=== PATIENT | female | born 1950 | race Two or more races ===

== ENCOUNTER 2021-07-14 18:15 | Inpatient (IN) | payer MEDICARE, OTHER ==
[~2021-07-14] VITALS: Ht 152.4 cm; Wt 51.3 kg
[2021-07-14] MEDS ORDERED: ASPirin 325 MG TAB PO ONE (21:00)
[2021-07-14 21:44] LABS: Basophils # (auto) 0.1 10 ^3/uL (0-0.2); Basophils % (auto) 0.9 % (0.0-2.0); Eosinophils # (auto) 0.1 10 ^3/uL (0-0.8); Eosinophils % (auto) 2.1 % (0.0-7.0); Hematocrit 39.9 % (36.0-46.0); Hemoglobin 13.5 g/dL (12.2-16.2); Lymphocytes # (auto) 3.1 10 ^3/uL (0.4-5.4); Mean Corpuscular Hemoglobin 29.4 pg (28.0-32.0); Mean Corpuscular Hgb Conc. 33.9 g/dL (32.0-36.0); Mean Corpuscular Volume 86.8 fL (80.0-100.0); Monocytes # (auto) 0.5 10 ^3/uL (0-1.3); Monocytes % (auto) 8.2 % (0.0-12.0); Neutrophils # (auto) 2.7 10 ^3/uL (1.6-8.6); Neutrophils % (auto) 41.8 % (37.0-80.0); Nucleated Red Blood Cells % 0.1 %; Red Blood Cells 4.59 10^6/uL (4.0-5.20); Red Cell Distribution Width 14.4 % (11.8-14.3); White Blood Cell 6.5 10^3/uL (4.4-10.8)
[2021-07-14] MEDS ORDERED: TEMAZEPAM 15 MG CAP PO PRN (21:45)
[2021-07-14] MEDS ORDERED: DEXTROSE (50%) 50ML SYRG IV PRN (21:45)
[2021-07-14] MEDS ORDERED: ONDANSETRON HCL 4 MG/2 ML VIAL IV PRN (21:45)
[2021-07-14 21:59] LABS: INR 0.97 (0.9-1.15)
[2021-07-14 22:00] LABS: Albumin 3.9 g/dL (3.4-5.0); Calcium 9.7 mg/dL (8.5-10.1); Potassium 3.9 mmol/L (3.5-5.1)
[2021-07-14 22:03] LABS: BUN/Creatinine Ratio 14.3
[2021-07-14 22:14] LABS: Bilirubin, Total 0.2 mg/dL (0.2-1.0); Total Protein 8.2 g/dL (6.4-8.2)
[2021-07-14] MEDS: ACCU-CHEK COMFORT CURVE STRIP VI SCH (23:41)
[2021-07-15] MEDS: GABAPENTIN 300 MG CAP PO SCH ×3 (00:01→21:14)
[2021-07-15] MEDS: ATORVASTATIN 20 MG TAB PO SCH ×2 (00:02→21:14)
[2021-07-15] MEDS: CARVEDILOL 3.125 MG TAB PO SCH ×3 (00:02→21:17)
[2021-07-15] MEDS: InsuLIN REG 1unit/0.01ml Soln (100units/ml) SC SCH ×5 (00:18→21:24)
[2021-07-15] MEDS ORDERED: PAR20T GT (02:24)
[2021-07-15] MEDS ORDERED: OMEP20TA PO (02:25)
[2021-07-15] MEDS ORDERED: MELO1TAB56 PO (02:27)
[2021-07-15] MEDS ORDERED: CAR3125T PO (02:27)
[2021-07-15] MEDS ORDERED: METF-371 PO (02:28)
[2021-07-15] MEDS ORDERED: ASPI-543 PO (02:29)
[2021-07-15] MEDS ORDERED: SIMV-8 PO (02:31)
[2021-07-15] MEDS ORDERED: AMLO-489 PO (02:32)
[2021-07-15 05:00] VITALS: BP 114/67
[2021-07-15] MEDS: ACCU-CHEK COMFORT CURVE STRIP VI SCH ×4 (06:15→21:24)
[2021-07-15 09:05] VITALS: BP 115/73
[2021-07-15] MEDS ORDERED: ASPirin 81 mg TAB PO SCH (10:00)
[2021-07-15] MEDS: ZINC SULFATE 220mg CAP or TAB PO SCH (10:10)
[2021-07-15] MEDS: amLODIPine BESYLATE 5 MG TAB PO SCH (10:11)
[2021-07-15] MEDS: ENOXAPARIN SOD 40 MG/0.4 ML SYRINGE SC SCH (10:12)
[2021-07-15] MEDS: ASCORBIC ACID 500 MG TAB PO SCH (10:12)
[2021-07-15] MEDS: PANTOPRAZOLE 40 MG TAB PO SCH (10:12)
[2021-07-15] MEDS: ASPIRIN-DIPYRIDAMOLE (25/200MG) CAPSULE PO SCH ×2 (10:40→21:14)
[2021-07-15 12:20] LABS: Cholesterol 204 mg/dL (< 200); HDL Cholesterol 75 mg/dL (40-59); LDL Cholesterol 103 mg/dL (< 100); Triglycerides 160 mg/dL (< 150)
[2021-07-15 12:44] VITALS: BP 136/79
[2021-07-15 16:44] VITALS: BP 130/74
[2021-07-15] MEDS: ACETAMINOPHEN 325 MG TAB PO PRN (18:28)
[2021-07-15 22:14] VITALS: BP 116/76
[2021-07-16 05:00] VITALS: BP 107/67
[2021-07-16] MEDS: InsuLIN REG 1unit/0.01ml Soln (100units/ml) SC SCH ×4 (06:32→22:12)
[2021-07-16] MEDS: ACCU-CHEK COMFORT CURVE STRIP VI SCH ×4 (06:33→22:10)
[2021-07-16 09:00] VITALS: BP 135/78
[2021-07-16] MEDS: ZINC SULFATE 220mg CAP or TAB PO SCH (10:12)
[2021-07-16] MEDS: ASPIRIN-DIPYRIDAMOLE (25/200MG) CAPSULE PO SCH ×2 (10:13→21:05)
[2021-07-16] MEDS: CARVEDILOL 3.125 MG TAB PO SCH ×2 (10:13→21:06)
[2021-07-16] MEDS: GABAPENTIN 300 MG CAP PO SCH ×2 (10:14→21:06)
[2021-07-16] MEDS: amLODIPine BESYLATE 5 MG TAB PO SCH (10:14)
[2021-07-16] MEDS: PANTOPRAZOLE 40 MG TAB PO SCH (10:14)
[2021-07-16] MEDS: ASCORBIC ACID 500 MG TAB PO SCH (10:15)
[2021-07-16] MEDS: ENOXAPARIN SOD 40 MG/0.4 ML SYRINGE SC SCH (10:15)
[2021-07-16] MEDS: ACETAMINOPHEN 325 MG TAB PO PRN ×2 (11:30→22:09)
[2021-07-16 13:00] VITALS: BP 130/77
[2021-07-16 17:00] VITALS: BP 130/80
[2021-07-16] MEDS: ATORVASTATIN 20 MG TAB PO SCH (21:06)
[2021-07-16 22:00] VITALS: BP 130/72
[2021-07-17 05:22] VITALS: BP 105/62
[2021-07-17] MEDS: ACCU-CHEK COMFORT CURVE STRIP VI SCH ×4 (07:00→21:50)
[2021-07-17] MEDS: InsuLIN REG 1unit/0.01ml Soln (100units/ml) SC SCH ×4 (07:01→22:03)
[2021-07-17 09:00] VITALS: BP 117/76
[2021-07-17] MEDS: CARVEDILOL 3.125 MG TAB PO SCH ×2 (09:30→21:49)
[2021-07-17] MEDS: amLODIPine BESYLATE 5 MG TAB PO SCH (09:35)
[2021-07-17] MEDS: ACETAMINOPHEN 325 MG TAB PO PRN (10:45)
[2021-07-17] MEDS: PANTOPRAZOLE 40 MG TAB PO SCH (11:13)
[2021-07-17] MEDS: GABAPENTIN 300 MG CAP PO SCH ×2 (11:13→21:49)
[2021-07-17] MEDS: ENOXAPARIN SOD 40 MG/0.4 ML SYRINGE SC SCH (11:13)
[2021-07-17] MEDS: ASPIRIN-DIPYRIDAMOLE (25/200MG) CAPSULE PO SCH ×2 (12:08→21:48)
[2021-07-17 13:00] VITALS: BP 123/80
[2021-07-17] MEDS: KETOROLAC TROMETH 30 MG/ML 1ML VIAL IV PRN (16:36)
[2021-07-17 17:00] VITALS: BP 136/77
[2021-07-17] MEDS: ATORVASTATIN 20 MG TAB PO SCH (21:49)
[2021-07-17 22:00] VITALS: BP 117/69
[2021-07-18 05:00] VITALS: BP 106/66
[2021-07-18] MEDS: ACCU-CHEK COMFORT CURVE STRIP VI SCH ×4 (06:39→22:04)
[2021-07-18] MEDS: InsuLIN REG 1unit/0.01ml Soln (100units/ml) SC SCH ×4 (06:40→22:05)
[2021-07-18 08:00] VITALS: BP 117/82
[2021-07-18] MEDS: PANTOPRAZOLE 40 MG TAB PO SCH (08:37)
[2021-07-18] MEDS: GABAPENTIN 300 MG CAP PO SCH ×2 (08:38→22:04)
[2021-07-18] MEDS: ENOXAPARIN SOD 40 MG/0.4 ML SYRINGE SC SCH (08:38)
[2021-07-18] MEDS: KETOROLAC TROMETH 30 MG/ML 1ML VIAL IV PRN (08:40)
[2021-07-18] MEDS: CARVEDILOL 3.125 MG TAB PO SCH ×2 (08:41→22:04)
[2021-07-18] MEDS: amLODIPine BESYLATE 5 MG TAB PO SCH (08:41)
[2021-07-18] MEDS: ASPIRIN-DIPYRIDAMOLE (25/200MG) CAPSULE PO SCH ×2 (08:42→22:03)
[2021-07-18 12:00] VITALS: BP 107/65
[2021-07-18 16:00] VITALS: BP 122/73
[2021-07-18 22:00] VITALS: BP 117/75
[2021-07-18] MEDS: ATORVASTATIN 20 MG TAB PO SCH (22:04)
[2021-07-19 05:00] VITALS: BP 126/74
[2021-07-19] MEDS: ACCU-CHEK COMFORT CURVE STRIP VI SCH ×4 (05:47→22:02)
[2021-07-19] MEDS: InsuLIN REG 1unit/0.01ml Soln (100units/ml) SC SCH ×4 (05:47→22:00)
[2021-07-19 08:00] VITALS: BP 121/73
[2021-07-19] MEDS: ASPIRIN-DIPYRIDAMOLE (25/200MG) CAPSULE PO SCH (09:49)
[2021-07-19] MEDS: CARVEDILOL 3.125 MG TAB PO SCH ×2 (09:49→22:01)
[2021-07-19] MEDS: GABAPENTIN 300 MG CAP PO SCH ×2 (09:49→22:02)
[2021-07-19] MEDS: amLODIPine BESYLATE 5 MG TAB PO SCH (09:50)
[2021-07-19] MEDS: PANTOPRAZOLE 40 MG TAB PO SCH (09:50)
[2021-07-19] MEDS: ENOXAPARIN SOD 40 MG/0.4 ML SYRINGE SC SCH (09:50)
[2021-07-19 12:00] VITALS: BP 117/75
[2021-07-19] MEDS: KETOROLAC TROMETH 30 MG/ML 1ML VIAL IV PRN (12:09)
[2021-07-19] MEDS ORDERED: MIDAZOLAM HCL 2MG/2ML 2ml VIAL (1mg/ml) IV ONE (13:15)
[2021-07-19 16:00] VITALS: BP 107/63
[2021-07-19] MEDS: ATORVASTATIN 20 MG TAB PO SCH (22:00)
[2021-07-19 22:28] VITALS: BP 134/79
[2021-07-20 05:47] VITALS: BP 124/70
[2021-07-20] MEDS: ACCU-CHEK COMFORT CURVE STRIP VI SCH ×4 (05:47→21:52)
[2021-07-20] MEDS: InsuLIN REG 1unit/0.01ml Soln (100units/ml) SC SCH ×4 (05:47→21:51)
[2021-07-20 09:00] VITALS: BP 120/68
[2021-07-20] MEDS: PANTOPRAZOLE 40 MG TAB PO SCH (09:38)
[2021-07-20] MEDS: GABAPENTIN 300 MG CAP PO SCH ×2 (09:38→21:49)
[2021-07-20] MEDS: CARVEDILOL 3.125 MG TAB PO SCH ×2 (09:39→21:53)
[2021-07-20] MEDS: CLOPIDOGREL BISULFATE 75 MG TAB PO SCH (09:39)
[2021-07-20] MEDS: amLODIPine BESYLATE 5 MG TAB PO SCH (09:40)
[2021-07-20] MEDS: ENOXAPARIN SOD 40 MG/0.4 ML SYRINGE SC SCH (09:40)
[2021-07-20 12:46] VITALS: BP 130/79
[2021-07-20 16:50] VITALS: BP 111/67
[2021-07-20 20:00] VITALS: BP 116/69
[2021-07-20] MEDS: ATORVASTATIN 20 MG TAB PO SCH (21:48)
[2021-07-21 05:00] VITALS: BP 123/78
[2021-07-21] MEDS: ACCU-CHEK COMFORT CURVE STRIP VI SCH ×2 (06:24→11:24)
[2021-07-21] MEDS: InsuLIN REG 1unit/0.01ml Soln (100units/ml) SC SCH ×2 (06:24→11:26)
[2021-07-21 09:00] VITALS: BP 113/67
[2021-07-21] MEDS: GABAPENTIN 300 MG CAP PO SCH (09:32)
[2021-07-21] MEDS: CARVEDILOL 3.125 MG TAB PO SCH (09:32)
[2021-07-21] MEDS: PANTOPRAZOLE 40 MG TAB PO SCH (09:33)
[2021-07-21] MEDS: ENOXAPARIN SOD 40 MG/0.4 ML SYRINGE SC SCH (09:33)
[2021-07-21] MEDS: amLODIPine BESYLATE 5 MG TAB PO SCH (09:33)
[2021-07-21] MEDS: CLOPIDOGREL BISULFATE 75 MG TAB PO SCH (09:33)
[2021-07-21] MEDS ORDERED: METF-371 PO (10:14)
[2021-07-21] MEDS ORDERED: CLOP75TA28 PO (10:14)
[2021-07-21] MEDS ORDERED: ATOR20TA50 PO (10:14)
[2021-07-21] MEDS ORDERED: CAR3125T PO (10:14)
[2021-07-21] MEDS ORDERED: AMLO-489 PO (10:14)
[2021-07-21 13:00] VITALS: BP 114/74
== END 2021-07-21 12:29 | disposition home or self-care (01) | DRG 66 ==
LOC: ER 18:18 → OVERFLOW 21:33 → WEST WING 07-15 00:28
PROVIDERS: ADMIT Nurse Practitioner; ATTEND Internal Medicine Nephrology
PROC: B24BZZ4 Ultrasonography of Heart with Aorta, Transesophageal (ICD-10-PCS; principal; 2021-07-19)
DX: I63.9 Cerebral infarction, unspecified (principal); E11.9 Type 2 diabetes mellitus without complications; I10 Essential (primary) hypertension; G47.00 Insomnia, unspecified; E78.5 Hyperlipidemia, unspecified; K21.9 Gastro-esophageal reflux disease without esophagitis; G47.10 Hypersomnia, unspecified; R29.810 Facial weakness; Z20.822 Contact with and (suspected) exposure to COVID-19; Z79.82 Long term (current) use of aspirin; Z79.899 Other long term (current) drug therapy; Z82.0 Family history of epilepsy and other diseases of the nervous system; Z82.49 Family history of ischemic heart disease and other diseases of the circulatory system; Z83.3 Family history of diabetes mellitus; Z86.73 Personal history of transient ischemic attack (TIA), and cerebral infarction without residual deficits
CPT/HCPCS: 36415; 70450; 70551; 71045; 80053; 80061; 82962; 83036; 83880; 84484; 85025; 85610; 87426; 93005; 93306; 93312; 93886; 99152; G0378; J1815; J1885; J2250; J2405

== ENCOUNTER 2023-03-28 17:38 | Emergency (ER) | payer MEDICARE ==
[~2023-03-28] VITALS: Ht 154.9 cm; Wt 51.8 kg
[~2023-03-28 17:38] MED LIST: AMLO1TAB22 PO; ATOR20TA50 PO; CAR3125T PO; CLOP75TA28 PO; METF-371 PO; OMEP20TA PO; PAR20T GT
[2023-03-28] MEDS ORDERED: SODIUM BICARBONATE 8.4 % INJ 50ML VIAL IV ONE (19:08)
[2023-03-29 00:17] VITALS: BP 139/85; PULSE 85; RESP 20; TEMP 97.6; O2SAT 97
== END 2023-03-29 02:01 | disposition home or self-care (01) ==
LOC: ER 17:38
DX: S63.591A Other specified sprain of right wrist, initial encounter (principal); S00.83XA Contusion of other part of head, initial encounter; S70.11XA Contusion of right thigh, initial encounter; S80.211A Abrasion, right knee, initial encounter; I10 Essential (primary) hypertension; E11.9 Type 2 diabetes mellitus without complications; K21.9 Gastro-esophageal reflux disease without esophagitis; E78.5 Hyperlipidemia, unspecified; I25.10 Atherosclerotic heart disease of native coronary artery without angina pectoris; Z98.890 Other specified postprocedural states; Z79.84 Long term (current) use of oral hypoglycemic drugs; Z79.899 Other long term (current) drug therapy; W18.39XA Other fall on same level, initial encounter; Y93.89 Activity, other specified; Y92.89 Other specified places as the place of occurrence of the external cause; Y99.8 Other external cause status
CPT/HCPCS: 29125; 70450; 70486; 72192; 73110; 73562; 93005

== ENCOUNTER 2023-06-06 14:23 | Emergency (ER) | payer MEDICARE ==
[~2023-06-06] VITALS: Ht 152.4 cm; Wt 50.3 kg
[2023-06-06 15:13] VITALS: BP 131/71; PULSE 104; RESP 16; TEMP 97.8; O2SAT 96
[2023-06-06 15:40] LABS: Urine Bacteria FEW /hpf (None Seen); Urine Blood TRACE /uL (Negative); Urine Clarity Clear (Clear); Urine Color Yellow (Yellow); Urine Protein, UAD 2+ (Negative); Urine Specific Gravity 1.023 (1.001-1.035); Urine Urobilinogen Normal (Negative); Urine WBC 6 /hpf (0 - 5); Urine pH 6.5 (5.0-8.0)
[2023-06-06 16:04] LABS: Basophils # (auto) 0 10 ^3/uL (0-0.2); Basophils % (auto) 0.2 % (0.0-2.0); Eosinophils # (auto) 0 10 ^3/uL (0-0.8); Eosinophils % (auto) 0.3 % (0.0-7.0); Hematocrit 35.9 % (36.0-46.0); Hemoglobin 12.5 g/dL (12.2-16.2); Lymphocytes # (auto) 1.1 10 ^3/uL (0.4-5.4); Lymphocytes % (auto) 11.3 % (10.0-50.0); Mean Corpuscular Hemoglobin 30.2 pg (28.0-32.0); Mean Corpuscular Hgb Conc. 34.8 g/dL (32.0-36.0); Mean Corpuscular Volume 86.9 fL (80.0-100.0); Monocytes # (auto) 0.9 10 ^3/uL (0-1.3); Monocytes % (auto) 9.4 % (0.0-12.0); Neutrophils # (auto) 7.6 10 ^3/uL (1.6-8.6); Neutrophils % (auto) 78.8 % (37.0-80.0); Nucleated Red Blood Cells % 0.1 %; Red Blood Cells 4.13 10^6/uL (4.0-5.20); Red Cell Distribution Width 17.2 % (11.8-14.3); White Blood Cell 9.7 10^3/uL (4.4-10.8)
[2023-06-06 16:10] LABS: Alanine Aminotransferase 15 U/L (7-40); Albumin 4.6 g/dL (3.2-4.8); Alkaline Phosphatase 108 U/L (46-116); Anion Gap 7 (5-15); Aspartate Aminotransferase 18 U/L (13-40); BUN/Creatinine Ratio 7.6 (10.0-20.0); Bilirubin, Total 0.5 mg/dL (0.2-1.0); Blood Urea Nitrogen 5 mg/dL (9-23); Calcium 9.3 mg/dL (8.5-10.1); Carbon Dioxide 24 mmol/L (20-30); Chloride 93 mmol/L (98-107); Glucose 205 mg/dL (74-106); Lactic Acid w/Reflex 2.7 mmol/L (0.4-2.0); Potassium 4.6 mmol/L (3.5-5.1); Sodium 124 mmol/L (136-145); Total Protein 7.7 g/dL (5.7-8.2)
[2023-06-06] MEDS ORDERED: SODIUM CHLORIDE 0.9% 1,000 ML IV ONE (16:15)
[2023-06-06] MEDS ORDERED: ACETAMINOPHEN 325 MG TAB PO ONE (16:15)
[2023-06-06] MEDS ORDERED: cefTRIAXone 1GM/50ML D5W 50 ML IV ONE (16:30)
[2023-06-06] MEDS ORDERED: ACET-1080 PO (17:34)
[2023-06-06] MEDS ORDERED: CIPR-173 PO (17:34)
== END 2023-06-06 17:58 | disposition home or self-care (01) ==
LOC: ER 14:23
DX: R51.9 Headache, unspecified (principal); N39.0 Urinary tract infection, site not specified; E11.9 Type 2 diabetes mellitus without complications; K21.9 Gastro-esophageal reflux disease without esophagitis; E78.5 Hyperlipidemia, unspecified; I10 Essential (primary) hypertension; Z87.820 Personal history of traumatic brain injury; Z90.49 Acquired absence of other specified parts of digestive tract
CPT/HCPCS: 36415; 70450; 71046; 80053; 81001; 83605; 85025; 96365; 99285; J0696; J7030

== ENCOUNTER 2024-11-15 15:32 | Emergency (ER) | payer MEDICARE ==
[~2024-11-15] VITALS: Ht 160 cm; Wt 51.2 kg
[~2024-11-15 15:32] MED LIST changes: +ACET-1080 PO; +CIPR-173 PO
--- NOTE | 2024-11-15 16:44 | DVH ---
CLINICAL INDICATION: Twisting injury TECHNIQUE: 3 V XY R KNEE 3V XRAY Comparison: XY R KNEE 3V XRAY on DOS: 03/28/23 FINDINGS/IMPRESSION: : There is no evidence of acute fracture or dislocation. Soft tissues are unremarkable.
--- NOTE | 2024-11-15 16:59 | ED.PDOC ---
History of Present Illness HPI Comments 74F presents to the Er in a wheelchair and with no prior hx associated to the c/c of a fall injury of the right knee five days ago. The son who was pushing the pt stated that the pt was in the garden doing yard work when she fell and landed on her right knee, and ever since then the pt is unable to bear all of her weight onto the on leg. Patient is able to ambulate, but with difficulty. Pt notes that the incident happened 5 days ago and that the pt has been having a NEWSOME w/ N/. PMHx of CVA, DM, GERD, High Lipids and HTN. SHx of . Denies chills, fever, /V/D, SOB, CP or no other associated symptom's, modifiers, recent injuries or sick contacts at this time. Time Seen by MD: 15:55 Primary Care Provider: HUAN Reviewed Notes: Nurses Notes, Medications, Allergies Allergies: Coded Allergies: NO KNOWN ALLERGIES (Unverified , 07/14/21) Home Meds Active Scripts Acetaminophen (Tylenol 8 Hour Arthritis) 650 Mg Tab, 650 MG PO QID, #30 TAB Prov:CRISTIANO RAE 06/06/23 Ciprofloxacin Hcl (Cipro) 500 Mg Tab, 1 TAB PO BID, #14 TAB Prov:CRISTIANO RAE 06/06/23 Clopidogrel Bisulfate (Plavix) 75 Mg Tab, 75 MG PO DAILY for 30 Days, #30 TAB 1 Refill Prov:KENNETH MARTINEZ MD 07/21/21 Atorvastatin Calcium (ATORVASTATIN CALCIUM) 20 Mg Tab, 20 MG PO HS for 30 Days, #30 TAB 1 Refill Prov:KENNETH MARTINEZ MD 07/21/21 Amlodipine Besylate (Amlodipine Besylate) 5 Mg Tab, 2 TAB PO DAILY for 30 Days, #60 TAB 1 Refill Prov:KENNETH MARTINEZ MD 07/21/21 Metformin Hydrochloride (Metformin Hcl) 850 Mg Tab, 850 MG PO BID for 30 Days, #60 TAB 1 Refill Prov:KENNETH MARTINEZ MD 07/21/21 Carvedilol (Coreg) 3.125 Mg Tab, 3.125 MG PO BID for 30 Days, #60 TAB 1 Refill Prov:KENNETH MARTINEZ MD 07/21/21 Reported Medications Omeprazole (Gnp Omeprazole) 20 Mg Tab, 20 MG PO, TAB 07/15/21 Paroxetine (PAXIL TABLET) 20 Mg Tb, 20 MG GT, TAB 07/15/21 Information Source: Patient, Relative (Child) Mode of Arrival: Wheelchair Severity: Moderate Timing: Days Duration: Since onset, Days Prehospital treatment: None Past Medical History PAST MEDICAL HISTORY: CVA, DM, GERD, High Lipids, HTN Surgical History: ASSIST[employer] History: Denies all ASSIST[employer]ING [employer] Hx Family History Family History: Reviewed,noncontributory to illness, Unknown Social History Smoker: Non-Smoker Alcohol: Denies ETOH Use Drugs: Denies Drug Use Lives In: Home Constitutional: reports: others (right knee pain); denies: chills, diaphoresis, fatigue, fever, malaise, sweats, weakness EENTM: denies: blurred vision, double vision, ear bleeding, ear discharge, ear drainage, ear pain, ear ringing, eye pain, eye redness, hearing loss, mouth pain, mouth swelling, nasal discharge, nose bleeding, nose congestion, nose pain, photophobia, tearing, throat pain, throat swelling, voice changes, others Respiratory: denies: cough, hemoptysis, orthopnea, SOB at rest, shortness of breath, SOB with excertion, stridor, wheezing, others Cardiovascular: denies: chest pain, dizzy spells, diaphoresis, Dyspnea on exertion, edema, irregular heart beat, left arm pain, lightheadedness, palpitations, PND, syncope, others Gastrointestinal: denies: abdomen distended, abdominal pain, blood streaked bowels, constipated, diarrhea, dysphagia, difficulty swallowing, hematemesis, melena, nausea, poor appetite, poor fluid intake, rectal bleeding, rectal pain, vomiting, others Genitourinary: denies: abnormal vagina bleeding, burning, dyspareunia, dysuria, flank pain, frequency, hematuria, incontinence, pain, , vagina discharge, urgency, others Neurological: denies: dizziness, fainting, headache, left sided numbness, left sided weakness, numbness, paresthesia, pre-existing deficit, right sided numbness, right sided weakness, seizure, speech problems, tingling, tremors, we akness, others Musculoskeletal: reports: others (Right knee pain); denies: back pain, gout, joint pain, joint swelling, muscle pain, muscle stiffness, neck pain Integumetry: denies: bruises, change in color, change in hair/nails, dryness, laceration, lesions, lumps, rash, wounds, others Allergic/Immunocompromised: denies: Difficulty Healing, Frequent Infections, Hives, Itching, others Hematologic/Lymphatic: denies: anemia, blood clots, easy bleeding, easy bruising, swollen glands, others Endocrine: denies: excessive hunger, excessive sweating, excessive thirst, excessive urination, flushing, intolerance to cold, intolerance to heat, unexplained weight gain, unexplained weight loss, others Psychiatric: denies: anxiety, bipolar disorder, depression, hopeless, panic disorder, schizophrenia, sleepless, suicidal, others All Other Systems: Reviewed and Negative Physical Exam General Appearance: Moderate Distress ( [id number] distress at time of evaluation.), Normal HEENT: Normal ENT Inspection, Pharynx Normal, TMs Normal Neck: Full Range of Motion, Non-Tender, Normal, Normal Inspection Respiratory: Chest Non-Tender, Lungs Clear, No Accessory Muscle Use, No Respiratory Distress, Normal Breath Sounds Cardiovascular: No Edema, No JVD, No Murmur, No Gallop, Normal Peripheral Pulses, Regular Rate/Rhythm Breast Exam: Deferred Gastrointestinal: No Organomegaly, Non Tender, No Pulsatile Mass, Normal Bowel Sounds, Soft Genitalia: Deferred Pelvic: Deferred Rectal: Deferred Extremities: No calf tenderness, Normal capillary refill, No pedal edema, Other ( Diffuse anterior and lateral tenderness to palpation with a suspect of the right knee. Possible mild edema noted. No ecchymosis. [id number] reduced range of motion.) Musculoskeletal : Apperance: Normal Neurologic: Alert, No Motor Deficits, Normal Affect, Normal Mood, No Sensory Deficits Cerebellar Function: Normal Reflexes: Normal Skin: Dry, Normal Color, Warm Lymphatic: No Adenopathy Was a procedure done? Was a procedure done?: No Differential Dx Considerations may include: Knee sprain, knee strain, knee fracture X-Ray, Labs, Meds, VS Vital Signs Date Time Temp Pulse Resp B/P (MAP) Pulse Ox O2 Delivery O2 Flow Rate FiO2 11/15/24 17:32 98.1 85 16 136/78 (97) 95 98.1 11/15/24 15:48 98.3 81 16 132/75 (94) 96 98.3 Current Medications Medications (Trade) Dose Ordered Sig/Facundo Route Start Time Stop Time Status Last Admin Acetaminophen/ Hydrocodone Bitart ([place] 5/325MG Tab) 1 tab ONCE ONCE PO 11/15/24 16:15 11/15/24 16:16 DC 11/15/24 17:30 X-Ray, Labs, Meds, VS Comment All studies performed the ED were evaluated by me personally. Imaging studies were unremarkable for any acute fractures. Patient sustained a knee strain. Advised son and patient utilize pain medication as needed, Abram wrap as long as the aid in healing as well as ice therapy. If symptoms continue for more than another 5-7 days, patient will need to follow up with her primary care provider for continued evaluation and possible MRI request. Time of 1ST Reevaluation: 16:25 Reevaluation 1ST: Improved Consultation: PCP Patient Education/Counseling: Diagnosis, Treatment, Prognosis Family Education/Counseling: Diagnosis, Treatment, Prognosis Departure 1 Departure Time of Disposition: 17:38 Impression: Primary Impression: Knee sprain Disposition: 01 HOME / SELF CARE / HOMELESS Condition: Stable Additional Instructions: Advise utilizing medication as needed for symptomatic relief as well as ice therapy. If symptoms do not resolve in the next several days, patient will need to follow up with the primary care provider for possible MRI evaluation. e-Prescriptions Acetaminophen (Acetaminophen) 500 Mg Tab 500 MG PO Q4HP PRN, #30 TAB Prov: TOBIAS ROBLERO 11/15/24 Discharged With: Self, Relative Critical Care Note Critical Care Time?: No Stability Stability form required: No Heart Score Heart Score: Heart Score Response (Comments) Value History N/A 0 EKG N/A 0 Age N/A 0 Risk Factors N/A 0 Troponin N/A 0 Total 0 I personally scribed for TOBIAS ROBLERO PAC ([email or web address]) on 11/15/24 at 16:59. Electronically submitted by Dameon Flores ([email or web address]). TOBIAS ROBLERO PAC Nov 15, 2024 16:59
[2024-11-15] MEDS: HYDROcodone-ACET 5/325MG TAB PO ONE (17:30)
[2024-11-15] MEDS ORDERED: ACET500T58 PO (17:40)
[2024-11-15 18:32] VITALS: BP 138/76; TEMP 98.7
[2024-11-15 18:33] VITALS: PULSE 74; RESP 20; O2SAT 96
== END 2024-11-15 18:34 | disposition home or self-care (01) ==
LOC: ER 15:37
DX: S83.91XA Sprain of unspecified site of right knee, initial encounter (principal); I10 Essential (primary) hypertension; E11.9 Type 2 diabetes mellitus without complications; K21.9 Gastro-esophageal reflux disease without esophagitis; E78.5 Hyperlipidemia, unspecified; Z86.73 Personal history of transient ischemic attack (TIA), and cerebral infarction without residual deficits; Z79.84 Long term (current) use of oral hypoglycemic drugs; Z79.02 Long term (current) use of antithrombotics/antiplatelets; Z79.899 Other long term (current) drug therapy; W18.39XA Other fall on same level, initial encounter; Y93.89 Activity, other specified; Y92.89 Other specified places as the place of occurrence of the external cause; Y99.8 Other external cause status
CPT/HCPCS: 73562